=== PATIENT | female | born 1990 | race Caucasian/White ===

== ENCOUNTER → 2021-05-30 11:46 | Outpatient (CLI) | payer OTHER, SELFPAY | PROVIDERS: Visit Provider Physician Assistant Surgical | DX: R09.81 Nasal congestion (principal) | CPT/HCPCS: 87635; U0005; U0003 ==

== ENCOUNTER 2021-06-05 10:22 | Emergency (ER) | payer OTHER, SELFPAY ==
[2021-06-05 10:22] VITALS: BP 105/68; PULSE 108; RESP 16; TEMP 36.3; O2SAT 93; BMI 32.3
--- NOTE | 2021-06-05 11:01 | EDS_ITS ---
HPI HPI - GI History of Present Illness Chief Complaint: Nausea/Vomiting Informant: patient Abdominal Pain/Flank Pain Onset: Days (2) Nausea/Vomiting/Emesis GI Symptom: Positive for Nausea and Vomiting Diarrhea/Melena/Hematochezia GI Symptom: Positive for Diarrhea Narrative Narrative: Patient is had Covid for about a week, she is almost 32 weeks , started having vomiting and diarrhea 2 days ago now having trouble keeping fluids down. No near syncope or syncope. No abdominal pain. She is feeling the baby move. She is urinating but less than usual and it is darker, with no other issues with it. No blood in her stool or melena. PFSH PFSH Medical History no medical history no medical history Home Medications vit,[id number] [Prenatabs FA] 1 tab PO DAILY 09/01/17 [History Last Taken 08/31/17 08:00] dextromethorphan HBr [Delsym] mg PO 06/05/21 [History Last Taken Unknown] famotidine 20 mg PO BID 06/05/21 [History Last Taken Unknown] ferrous sulfate mg PO DAILY 06/05/21 [History Last Taken Unknown] guaifenesin [Mucinex] 600 mg PO BID 06/05/21 [History Last Taken Unknown] metoclopramide HCl 10 mg PO Q6H PRN #20 tab 06/05/21 [Rx Last Taken Unknown] pyridoxine (vitamin B6) [Vitamin B-6] 50 mg PO DAILY 06/05/21 [History Last Taken Unknown] Allergy/AdvReac Type Severity Reaction Status Date / Time No Known Allergies Allergy Verified 05/30/21 07:17 Surgical History (Updated 06/05/21 @ 10:53 by Mundo Navarro) History of Social History Smoking Status: Never smoker ROS ROS ED Constitutional Constitutional ED: Reports chills, fatigue and fever(s) Eyes Eyes: Denies change in vision or diplopia ENT ENT ED: Denies rhinorrhea or sore throat Cardiovascular Cardiovascular: Denies chest pain or palpitations Respiratory/Chest Respiratory/Chest: Reports cough; Denies dyspnea Gastrointestinal Gastrointestinal: Reports diarrhea, nausea and vomiting; Denies abdominal pain Genitourinary Genitourinary ED: Denies dysuria or hematuria Musculoskeletal Musculoskeletal: Denies back pain or neck pain Integumentary Denies abscess or rash Neurologic Neurologic: Denies headache(s), paresthesias or weakness Psychiatric Psychiatric: Denies anxiety or suicidal thoughts EXAM Physical Exam Const Vital Signs: 06/05/21 10:22 Temperature 97.3 F L Temperature Source Temporal Pulse Rate 108 H Respiratory Rate 16 Blood Pressure 105/68 Blood Pressure Mean 80 Pulse Ox 93 Oxygen Delivery Method Room Air Positive well nourished and well developed General Appearance ED: well developed and NAD HEENT Reports moist mucous membranes normocephalic and atraumatic Eyes PERRL and EOMs intact bilaterally Neck full ROM and supple Resp normal respiratory effort and clear to auscultation bilaterally Cardio regular rate, regular rhythm and no murmurs Rate: Negative for tachycardic GI non-tender GI Narrative: Distended above the umbilicus, nontender. Consistent with her trimester . Auscultation: normoactive bowel sounds Palpation: soft Back/Spine no CVA tenderness General Back: other FROM Extremity normal to inspection General Extremety ED: Negative for edema, pulses abnormal or tenderness General Extremity: Negative for edema or pulses abnormal Neuro oriented x3, CN's II-XII intact bilaterally and no sensory deficits noted Sensorium / Orientation: awake and alert Motor Exam: strength 5/5 throughout Skin no rashes or lesions noted and no wounds MDM MDM MDM Narrative Medical decision making narrative: Patient mildly hypokalemic. Oxygenating well. She declined the Zofran since she is not feeling sick right now. She was given a liter of IV fluid, and since her potassium is a little low a run of potassium chloride IV, and will be discharged with a prescription for Reglan. She is comfortable with that plan. Lab Data Attestation: I reviewed the patient's lab results. Labs: Laboratory Results - last 24 hr 06/05/21 11:02 Sodium 138 Potassium 3.3 L Chloride 107 Carbon Dioxide 24.0 Anion Gap 7 BUN 4 L Creatinine 0.64 Estim Creat Clear Calc 143.96 Est GFR (MDRD) Af Amer 141 Est GFR (MDRD) Non-Af 116 BUN/Creatinine Ratio 6.3 L Glucose 91 Calcium 8.3 L Discharge Plan Triage Chief Complaint: Nausea/Vomiting ED Provider: Andre Teresa Dx/Rx/DC Orders Clinical Impression: Dehydration, mild, Vomiting, Hypokalemia due to excessive gastrointestinal loss of potassium, COVID-19 Instructions: ED Hypokalemia, ED Vomiting (Adult) Prescriptions: New metoclopramide HCl [metoclopramide HCl] 10 MG tablet 10 mg PO Q6H PRN (Reason: nausea) Qty: 20 RF: 0 No Action Prenatabs FA 1 TABLET tablet 1 tab PO DAILY RF: 0 famotidine 20 mg tablet 20 mg PO BID RF: 0 Delsym 30 mg/5 mL Liquid PO RF: 0 ferrous sulfate 28 mg iron Tablet PO DAILY RF: 0 Vitamin B-6 50 mg Capsule 50 mg PO DAILY RF: 0 guaifenesin [Mucinex] 600 mg Tablet Extended Release 12hr 600 mg PO BID RF: 0 Primary Care Provider: Care Physician,No Primary Referrals: Lucia Lazo MD [STAFF PHYSICIAN] - (as directed) Care Physician,No Primary [Primary Care Provider] - Activity Restrictions/Additional Instructions: Try to get a home portable pulse oximeter and closely watch your oxygen levels periodically. If you stay below 90% for more than a minute or so, and/or you ar e feeling like your breathing is getting worse, return to the emergency department for further evaluation. Disposition Disposition: Home, Self Care
[2021-06-05] MEDS: 0.9% Normal Saline 1,000 ML 999 ML IV (11:02)
[2021-06-05 11:21] LABS: Anion Gap 7 (5-15); BUN 4 mg/dL (7-18); BUN/Creat Ratio 6.3 RATIO (10-20); Calcium,Total 8.3 mg/dL (8.5-10.1); Chloride 107 mmol/L (98-107); Creatinine, Serum 0.64 mg/dL (0.55-1.02); EST Glomerular Filtration Rate 116 mL/min (>60); Est Glom Filt Rate - Afr Amer 141 mL/min (>60); Estimated Creatinine Clearance 143.96 ml/min; Glucose 91 mg/dL (74-106); Potassium 3.3 mmol/L (3.5-5.1); Sodium Level 138 mmol/L (136-145)
--- NOTE | 2021-06-05 13:34 | NURSING ---
WP nurse in ER to do NST on pt at 1245. fhr [id number] with accels noted with movement. ER nurse notified pt states understanding of test. one contraction noted in NST timeframe. Robert
[2021-06-05] MEDS: Potassium Chloride 10mEq/100mL 10 MEQ/100 ML IV.SOLN. 100 MEQ IV BOLUS (14:02)
[2021-06-05 14:06] VITALS: RESP 18
--- NOTE | 2021-06-05 14:06 | ED.RN ---
stress test completed by ob rn. pt recieving iv potassium informed of length.
[2021-06-05 15:12] VITALS: BP 91/58; PULSE 901; RESP 6
--- NOTE | 2021-06-05 16:01 | PCM.PN.BLA ---
Progress Note NST performed in ER. +COVID. Baseline 135 bpm, Moderate variablity with + accels, no declerations. TOCO: no contractions Category 1, reactive tracing. a/p: @ 31.6 week - dehydration +COVID in ER for IV fluids 1) IVF in ER 2) symptomatic treatment 3) well being established.
== END 2021-06-05 15:15 | disposition home or self-care (01) ==
PROVIDERS: Emergency Provider Emergency Medicine
DX: O26.893 Other specified pregnancy related conditions, third trimester (principal); O99.283 Endocrine, nutritional and metabolic diseases complicating pregnancy, third trimester; O21.2 Late vomiting of pregnancy; O99.891 Other specified diseases and conditions complicating pregnancy; E86.0 Dehydration; E87.6 Hypokalemia; U07.1 COVID-19; Z3A.32 32 weeks gestation of pregnancy
CPT/HCPCS: 59025; 59050; 80048; 96365; 96375; 99218; 99283; J7030; A4216; G0378

== ENCOUNTER 2021-07-25 05:05 | Inpatient (IN) | payer OTHER, SELFPAY ==
--- NOTE | 2021-07-24 12:31 | PCM.HP.BLA ---
History and Physical Date of Admission: 07/25/21 Pre-Op History and Physical ? HPI: The patient is a 30 year old female presenting for pre-operative visit. She is scheduled for and bilateral salpingectomy, for Repeat cs and desires sterilization on 07/25/21. Procedure discussed along with risks, benefits and complications. Other alternatives discussed for management. Consent form signed? Yes. ? ? PAST MEDICAL HISTORY PAST MEDICAL HISTORY Diagnosis Date ? Abnormal Pap smear of cervix 2013 ? Asthma ? ? last used an inhaler 2016 ? Placental abruption ? ? ? PAST SURGICAL HISTORY PAST SURGICAL HISTORY Procedure Laterality Date ? DELIVERY ONLY ? 12/29/14 ? , low transverse ? DELIVERY ONLY ? 09/01/2017 ? ? ? CURRENT MEDICATIONS Current Outpatient Medications Medication Sig Dispense Refill ? ferrous sulfate 325 mg (65 mg iron) tablet Take 325 mg by mouth twice daily. ? ? ? famotidine (PEPCID) 20 mg tablet Take 1 tablet by mouth twice daily. 60 tablet 1 ? Scaykwse-Sk-Rqn-Fe-FA ( VITAMIN) tab Take 1 tablet by mouth. ? ? ? No current facility-administered medications for this visit. ? ? ALLERGIES: Patient has no known allergies. ? PERSONAL HISTORY: SOCIAL HISTORY Social History ? Tobacco Use ? Smoking status: Never Smoker ? Smokeless tobacco: Never Used Substance Use Topics ? Alcohol use: Not Currently ? ? Comment: occasional when not ? Drug use: Yes ? ? Comment: marijuana- last used in12/2016 ? FAMILY HISTORY: FAMILY HISTORY FAMILY HISTORY Problem Relation Age of Onset ? Arthritis Mother ? ? No Known Problems Father ? ? No Known Problems Brother ? ? Heart Maternal Grandmother ? ? Heart Maternal Grandfather ? ? Heart Paternal Grandmother ? ? Cancer Paternal Grandfather ? ? No Known Problems Son ? ? No Known Problems Son ? ? ? REVIEW OF SYMPTOMS: negative except as noted above PHYSICAL EXAMINATION: ? VITALS: Blood pressure 104/72, weight 157 lb (71.2 kg), last menstrual period 10/30/2020. ? GENERAL: The patient is well nourished, well hydrated in no acute distress. , The patient is oriented to time, place, and person. NECK: full range of motion NEURO: alert and oriented x 3 ? IMPRESSION: @ 38 weeks , desires sterilization ? PLAN: R/CS and salpingectomy at 39 weeks on 07/25/21 ? Pt has been counseled on risks/benefits and alternatives of surgery including but not limited to anesthesia, bleeding, infection, injury to pelvic structures including bowel, bladder, ureters and vessels. Pt wishes to proceed with surgery at this time. ? NST today- reactive cat 1 ? Pre and post op instructions reviewed covid testing ordered ? I have reviewed and updated past medical and surgical history, medications and allergies Lucia Ray MD ?4:46 PM
[2021-07-25] VITALS (21 sets, daily range): BP systolic 83–118; BP diastolic 46–68; PULSE 56–87; RESP 13–20; TEMP 36–36.4; O2SAT 96–100; BMI 32.5
[2021-07-25] MEDS: Lactated Ringers 1,000 ML 999 ML IV (05:35)
[2021-07-25 06:00] LABS: Absolute Lymphocyte Count 1.75 X10^3/uL (0.83-4.51); Absolute Neutrophil Count 5.1 X10^3/uL (2.0-7.7); Basophil# 0.05 X10^3/uL; Basophil% 0.6 % (0-1); Eosinophil# 0.22 X10^3/uL; Eosinophils% 2.8 % (0-5); Hematocrit 31.2 % (37-47); Hemoglobin 9.8 g/dL (12.0-15.0); Lymphocyte # 1.75 X10^3/ul (0.83-4.51); Lymphocyte % 22.2 % (19-41); Mean Corp Hgb Conc 31.4 g/dL (32-36); Mean Corpuscular Hgb 24.9 pg (27.0-32.0); Mean Corpuscular Volume 79.4 fL (81-99); Mean Platelet Vol. 11.3 fl (6.2-12.0); Monocyte# 0.56 X10^3/uL; Monocyte% 7.1 % (0-10); NRBC Flagged by Analyzer 0 % (0-5); Neutrophil # 5.07 X10^3/uL (2.7-7.7); Neutrophil % 64.1 % (47-70); Platelet Count 211 K/mm3 (150-450); RBC Distribution Width CV 16.4 % (11.6-14.6); RBC Distribution Width SD 47.8 fl (35.1-43.9); Red Blood Count 3.93 M/mm3 (4.2-5.4); White Blood Count 7.9 K/mm3 (4.4-11.0)
[2021-07-25] MEDS: Acetaminophen 500 MG Tablet 1000 MG PO ×3 (06:02→23:42)
[2021-07-25] MEDS: Lactated Ringers 1,000 ML 150 ML IV (06:40)
[2021-07-25] MEDS: Sodium Citrate/Citric Acid 30 ML UDC PO (07:02)
[2021-07-25] MEDS: Cefazolin 2 GM in 0.9% Normal Saline 100 ML IV (07:16)
--- NOTE | 2021-07-25 08:14 | EX.PCM.OBRPT ---
Maternal Data Information Final SHARON: 08/01/21 Final SHARON Source: US <20 weeks Gestational age: 39 Details Operative Information Date of Procedure: 07/25/21 Pre-Operative Diagnosis: term gestation, previous cs, desires sterilization Post-Operative Diagnosis: same, live female Indications for : Repeat Elective and Desires elective sterilization Classification: Scheduled Procedure Type: bilateral salpingectomy chief passenger ship steward/stewardess #1: Julio Arceo Type of Anesthesia: Spinal Antibiotic Given: Ancef 2 grams IV x1 Drain: Argueta to straight drain Estimated Blood Loss: 800 Fluids Replaced: 1500 Procedure Start Time: 07:37 Procedure Stop Time: 08:16 Time of Delivery: 07:42 Findings Description of Procedure: After informed consent was obtained the patient was taken to the operating room she was given spinal anesthesia. sHe was placed in the supine position. She was then prepped and draped in normal sterile fashion. Once spinal anesthesia was found to be adequate skin incision was made with a scalpel in a Pfannenstiel fashion. It was carried down to the underlying layer of the fascia. Fascia was then incised midline with scapel and extended laterally using curved valle. 2 straight Deon's were placed in the superior aspect of the fascial edge and the rectus muscles were dissected off sharply. Attention was then turned to the inferior aspect where again the fascial edge was grasped with 2 straight Deon clamps tented up and the rectus muscle dissected off sharply. At this time the rectus muscles were grasped in the midline using 2 Allis clamps and scalpel was used to separate the rectus muscles. Using blunt force the peritoneum was then entered. Metzenbaums were used to take down the rectus muscles inferiorly as well as the peritoneum. At this time the vesicouterine peritoneum was identified. Uterine incision was made in a low transverse fashion with the scalpel and then entered bluntly. Gentle opposing traction was placed to extend the uterine incision. The membranes were ruptured amniotic fluid clear. 's head was then brought to the uterine incision was delivered atraumatically followed by the rest 's body. Nuchal x 1 loose, reduced prior to delivery. At this time delayed cord clamping was performed mouth nose were suctioned. was then handed to the waiting nursery team. The placenta was then removed with gentle traction. The uterus was removed from the intra-abdominal cavity is wrapped in a moist lap. it was cleared of all clots and debris using a moist lap. Ring clamps were placed on the uterine angles. Brisk bleeding noted from Right angle- figure of eight suture placed for hemostasis. #1 Vicryl suture was used in a running locked fashion for the first layer. Followed by second imbricating layer with #1 Vicryl. Tubes and ovaries were evaluated they were normal. The right tube was grasped in an avascular area with the Ever LigaSure used to seal and ligate along the mesosalpinx to remove the entire tube., The uterus was then placed back in the intra-abdominal cavity. The left tube was grasped with Babcocks and avascular planes. LigaSure was then used to seal and ligate along the mesosalpinx to remove the left tube completely. Uterine incision was reevaluated excellent hemostasis. Both pedicles were also evaluated and were hemostatic. Adelina was placed over the pedicles and the uterine incision. Peritoneum and muscle were reapproximated using #2 Vicryl suture in a running fashion. Muscle was evaluated good hemostasis. Adelina placed over the rectus. The fascia was then reapproximated using #1 Vicryl in a running fashion. Subcutaneous layer was evaluated and Bovie was used for any small oozing that was noted per #2-0 plain gut suture was then used to reapproximate the subcutaneous layer 4-0 Vicryl on a Tahir needle was used to reapproximate the skin in a subcutaneous fashion. Dry sterile dressing was applied. Instrument lap needle count were correct ?2. Anticipated normal postoperative course for this patient. Presentation: Positive for Vertex Amniotic Membrane Rupture Type: Artificial Time of Membrane Ruptured: 0741 Amniotic Fluid Description: Clear Placental Delivery Description: Manual Removal Placenta Disposition: [facility] Specimen(s) Sent to Pathology: Bilateral fallopian tubes Cord Vessel Description: 3 Vessels Cord Entanglement: Around neck x 1, loose Nuchal Cord Compression: Without compression Infant A Gender: Female (1 minute): 8 (5 minute): 9 Delayed Cord Clamping: Yes Complications Risks of Surgery Discussed w/Patient: Bleeding, Anesthesia Risks, Infection, Need for Future C-Sections, Permanency, Injury to surrounding structure(s) including bowel and bladder and Availability of other non-permanent control options Complications: none
[2021-07-25] MEDS: Oxytocin 30 units/NS 500 ml 30 UNITS/500 ML IV.SOLN 167 UNITS IV (08:35)
[2021-07-25] MEDS: Ketorolac 30 MG/ML Syringe IV ×3 (09:17→21:36)
--- NOTE | 2021-07-25 09:18 | FALS_PTH ---
PATIENT: ELVI YOON LOC: [facility] U#:[id number] AGE/SX: 30/F ROOM: WP004 RE07/25/[address]: Dr. Lucia Lazo, MDDOB: 1990 BED: 1 DIS: 07/26/2021 SPEC #: [id number] RECD: 07/25/21 09:27 STATUS: JAIRON ERVIN #: [id number] SUSAN: 07/25/21 09:[address]: Lucia Lazo DEPT: SURGICAL PATHOLOGY RECD BY: Jennifer Galvan ENTERED: 07/25/21 11:54 SP TYPE: FALL TUBES OTHR DR: Sharona Primary Care Phys Tissues: Fallopian tube Procedures: Surgery Specimen Level II HEADER OPERATION: Tubal ligation PRE-OP DIAGNOSIS: Sterilization TISSUE SUBMITTED: Fallopian tubes, suture in left tube MICROSCOPIC DIAGNOSIS Bilateral fallopian tubes, bilateral salpingectomy: Bilateral fallopian tubes, no pathologic diagnosis. SJ:juanjo 07/28/2021 MICROSCOPIC DESCRIPTION Slides are reviewed. GROSS DESCRIPTION Received in fixative is one container labeled with the patient's name and designated bilateral fallopian tubes, left with suture. The specimen consists of two fallopian tubes with an average length of 7 cm and has an average diameter of 0.9 cm. Both fallopian tubes have normal fimbriated ends. No mass lesions are identified. Automobile Engine Assembler sections are submitted in two cassettes as follows: 1 - right fallopian tube, 2 - left fallopian tube. / AM:juanjo 07/25/21 TC:4 CPT: 14716 x2
[2021-07-25 09:27] LABS: Pathology Specimen OB SEE PATHOLOGY REPORT
[2021-07-25] MEDS: Ondansetron 4 MG/2 ML Vial IV ×2 (09:38→16:53)
[2021-07-25] MEDS: DiphenhydrAMINE 25 MG Capsule PO (10:44)
[2021-07-25] MEDS: Lactated Ringers 1,000 ML 100 ML IV (11:39)
[2021-07-25] MEDS: Lactated Ringers 250 ML 999 ML IV (20:54)
[2021-07-26] MEDS: 0.9% Saline Lock 10 ML Syringe IV (03:24)
[2021-07-26] MEDS: Ketorolac 30 MG/ML Syringe IV (03:24)
[2021-07-26 03:27] VITALS: BP 101/59; PULSE 68; RESP 16; TEMP 36.4; O2SAT 98
[2021-07-26] MEDS: Acetaminophen 500 MG Tablet 1000 MG PO (06:30)
[2021-07-26 06:44] LABS: Hematocrit 28.7 % (37-47); Hemoglobin 9.1 g/dL (12.0-15.0); Mean Corp Hgb Conc 31.7 g/dL (32-36); Mean Corpuscular Hgb 25.3 pg (27.0-32.0); Mean Corpuscular Volume 79.7 fL (81-99); Mean Platelet Vol. 11.2 fl (6.2-12.0); Platelet Count 212 K/mm3 (150-450); RBC Distribution Width CV 16.7 % (11.6-14.6); RBC Distribution Width SD 47.7 fl (35.1-43.9); White Blood Count 10.5 K/mm3 (4.4-11.0)
[2021-07-26 07:37] VITALS: BP 95/58; PULSE 68; RESP 16; TEMP 36.6; O2SAT 98
--- NOTE | 2021-07-26 09:21 | PCM.DC.SUM ---
Providers Date of Admission: 07/25/21 Primary Care Physician: No Primary Care Phys Reason For Visit: REPEAT CSECTION Medications at Discharge Home Medications vit,[id number] [Prenatabs FA] 1 tab PO DAILY 09/01/17 famotidine 20 mg PO BID 06/05/21 Hospital Course Operations section Summary of Care Provided Hospital Course: Patient here for repeat section with bilateral tubal ligation. Hospital course was uneventful. Physical Exam Narrative Dressing is dry and intact Const alert and no apparent distress General Appearance: cooperative and comfortable Exam Limitations: no limitations HEENT normocephalic Eyes General Eye: normal appearance of both eyes Neck full ROM General: normal visual inspection Chest Chest: symmetrical chest wall rise Resp normal respiratory effort and normal air movement Effort and Inspection: symmetric chest movement Auscultation: clear to auscultation bilaterally Cardio regular rate and regular rhythm GI normal to inspection, nondistended, normoactive bowel sounds Back/Spine normal ROM Extremity full ROM and no calf tenderness General Extremity: normal exam except as noted Skin no rashes or lesions noted Neuro CN's II-XII intact bilaterally Psych mental status grossly normal Weight / BMI Weight Weight: 153 lb 2 oz Body Mass Index (BMI) 32.5 ABG / Lab / Microbiology Data Result Diagrams: 07/26/21 06:36 Laboratory: Laboratory Results - last 24 hr 07/26/21 06:36: WBC 10.5, RBC 3.60 L, Hgb 9.1 L, Hct 28.7 L, MCV 79.7 L, MCH 25.3 L, MCHC 31.7 L, RDW Std Deviation 47.7 H, RDW Coeff of Misty 16.7 H, Plt Count 212, MPV 11.2 D/C Instructions Discharge Diet: No restrictions May resume sexual activity in: 6-8 weeks Weight Bearing Status: Weight bearing as tolerated Lifting Restrictions: 20 lbs Call your doctor if your incision/area has: Continuous Slow Oozing, Increased Pain/ Swelling, Increased Redness, Foul Smelling Discharge and Swelling at the incision site Call your doctor if you observe: Fever of 101 or Higher, Inability to urinate, Using more than 1 pad per hour, Shortness of breath, Chest pain, Calf discomfort and Uncontrolled pain Remove Dressing in: 5 days Cleanse incision/area with: Soap & Water and Keep Dressing Clean & Dry When: 1 week in office for incision check or sooner if needed 6 weeks Meaningful Use Info Meaningful Use Diagnoses (Choose all that apply): None applicable Discharge Plan Admission Admit Date/Time: 07/25/21 05:05 Primary Reason for Your Visit: Repeat C/S Attending Provider: Lucia Lazo Primary Care Provider: Molly Wood,Sharona Primary Discharge Orders/Prescriptions Prescriptions: No Action Prenatabs FA 1 TABLET tablet 1 tab PO DAILY RF: 0 famotidine 20 mg tablet 20 mg PO BID RF: 0 Referrals / Follow Up: Care Physician,No Primary [Primary Care Provider] - Disposition Disposition (needs filled in before D/C Order can be placed): Home, Self Care
--- NOTE | 2021-07-26 09:23 | PCM.PN.OB ---
Subjective Subjective Patient seen at bedside. Ambulating and voiding without difficulty. Denies any headache, vision changes, CP or SOB. with minimal support. Desires discharge home today. Objective Data Objective Data Vital Signs: Vital Signs Temp Pulse Resp BP Pulse Ox 97.8 F 68 16 95/58 L 98 07/26/21 07:37 07/26/21 07:37 07/26/21 07:37 07/26/21 07:37 07/26/21 07:37 Oxygen Delivery Method Room Air Weight: 153 lb 2 oz Body Mass Index (BMI) 32.5 Intake & Output: Intake and Output for Last 24 Hours 07/24/21 07/25/21 07/26/21 23:59 23:59 23:59 Intake Total 1949 / 1949 1000 / 1000 Output Total 2024 Balance -75 / -75 1000 / 1000 Lab / Micro Data Result Diagrams: 07/26/21 06:36 Labs: Laboratory Results - last 24 hr 07/26/21 06:36: WBC 10.5, RBC 3.60 L, Hgb 9.1 L, Hct 28.7 L, MCV 79.7 L, MCH 25.3 L, MCHC 31.7 L, RDW Std Deviation 47.7 H, RDW Coeff of Misty 16.7 H, Plt Count 212, MPV 11.2 ROS Eyes Eyes: Denies blurry vision, change in vision or spots in vision ENT HEENT: Denies dizziness or headache(s) Cardiovascular Cardiovascular: Denies abdominal pain, chest pain or dyspnea Respiratory/Chest Respiratory/Chest: Denies cough, dyspnea, shortness of breath at rest or shortness of breath with exertion Gastrointestinal Gastrointestinal: Denies abdominal pain, diarrhea or vomiting Genitourinary Genitourinary: Denies change in urinary stream, difficulty urinating or dysuria Musculoskeletal Musculoskeletal: Reports none Integumentary Integumentary: Denies rash Neurologic Neurologic: Denies dizziness, headache(s), memory loss or weakness Physical Exam Narrative Dressing is dry and intact Const alert and no apparent distress General Appearance: cooperative and comfortable Exam Limitations: no limitations HEENT normocephalic Eyes General Eye: normal appearance of both eyes Neck full ROM General: normal visual inspection Chest Chest: symmetrical chest wall rise Resp normal respiratory effort and normal air movement Effort and Inspection: symmetric chest movement Auscultation: clear to auscultation bilaterally Cardio regular rate and regular rhythm GI normal to inspection, nondistended, normoactive bowel sounds Back/Spine normal ROM Extremity full ROM and no calf tenderness General Extremity: normal exam except as noted Skin no rashes or lesions noted Neuro CN's II-XII intact bilaterally Psych mental status grossly normal Assessment & Plan (1) S/P repeat low transverse : (2) Status post bilateral salpingectomy: PLAN: PO Day 1 Repeat C/S with bilateral tubal ligation Pain control Routine care support D/C home later with follow up in office
[2021-07-26] MEDS: Ibuprofen 600 MG Tablet PO (11:09)
--- NOTE | 2021-07-26 12:56 | CM.ED ---
Addendum entered by Ros Valle 07/26/21 13:14: Apgars 8/9. NB born on [birth year] Ros Valle NUTRITION SERVICES AIDE BRENDON Original Note: SW Note Referral Source: chief technical officerdirector of provider relations Reason: History of THC use SW spoke to patient's RN, Felix, who reports patient is doing great. SW reveiewed chart and noted that patient reported her last THC use was 12/2016. However, in speaking to RN Felix patient had a provisional THC diagnosis on 12/25/20 per chart. Mom: Dinah PNC: [facility] Control: Patient had tubal Ligation Martha Escoto Weight 7# 8ounces Cable Strander: Dr. Fung Breast feeding. Patient reports that is going great. MOB's 2 other children: 6 year old boy and 4 year old boy Housing: Reside in [place] in a trailer. Patient, FOB and their children reside together Transportation: Patient reports she has access to transportation and when released by the MD she will be able to drive Supplies: Patient has carseat, crib/bassinet, diapers, clothing and all supplies Supports: Patient reports that her supports are her and her great grandmother who resides next door. Education Level: Patient graduated from High School. No learning issues or delays Employment: Patient works at [employer]. First shift. She will be taking 12 weeks off work Agency Involvement: No JFS, No WIC, NO HMG, No Counseling, No legal or CSB involvement. Patient open to referral to WIC FOB: Matthias Time Together: almost 10 years Involved at : FOB will be involved with the nb Employment: FOB works at [employer] and will be taking no time off work. FOB has no other children beside the children with patient. FOB MH/AOD and DV Issues: Denied by patient Maternal MH History: No history of anxiety, depression or Post Depression Patient was educated on Post Depression, Shaken Baby, and Safe Sleeping. Patient reports that she drinks socially when not . Patient reports that her last use of THC was right before I got with her. SW noted that patient had a provisional positive THC diagnosis in December and patient confirmed she got in October so that may be right. SW asked patient her plans regarding drug use. Patient said she plans not to use THC again. SW discussed with patient not using THC in front of the child, if using THC go outside and make sure a safe person is with the NB will be able to care for the nb and that we would recommend NOT using THC. Patient verbalized understanding. Plan: Home with NB. Referral to [facility] Ros OLIVAS
--- NOTE | 2021-07-26 18:40 | CM.ED ---
TAMARA made on line referral to [facility] per patient's request. Ros OLIVAS
--- NOTE | 2021-08-07 16:02 | CM.ED ---
SW Note SW received update regarding nb's meconium screen. Meconium was negative. TAMARA called [facility] and spoke to Cristina Martinez. TAMARA advised of provisional THC drug screen in December. TAMARA noted nb's tox was negative. Mec results were negative. Cristina took the information but the report will be screened out. Ros OLIVAS
== END 2021-07-26 11:15 | disposition home or self-care (01) | DRG 785 ==
PROVIDERS: Admitting Provider Obstetrics & Gynecology; Visit Provider Obstetrics & Gynecology
PROC: 10D00Z1 Extraction of Products of Conception, Low, Open Approach (ICD-10-PCS; CPT 59514; principal; 2021-07-25 07:15)
DX: O34.211 Maternal care for low transverse scar from previous cesarean delivery (principal); O69.1XX0 Labor and delivery complicated by cord around neck, with compression, not applicable or unspecified; O99.52 Diseases of the respiratory system complicating childbirth; J45.909 Unspecified asthma, uncomplicated; Z30.2 Encounter for sterilization; Z37.0 Single live birth; Z80.9 Family history of malignant neoplasm, unspecified; Z82.61 Family history of arthritis; Z3A.39 39 weeks gestation of pregnancy
CPT/HCPCS: 85025; 85027; 86850; 86900; 86901; 88302; 99218; J7120; A4216; G0378; J2405

== ENCOUNTER → 2025-05-08 | Outpatient (CLI) | payer OTHER, SELFPAY | END | disposition home or self-care (01) | LOC: LABSPEC 15:42 | DX: J02.9 Acute pharyngitis, unspecified (principal) | CPT/HCPCS: 87070 ==